=== PATIENT | female | born 1980 | race African-American/Black ===

== ENCOUNTER 2016-11-18 17:26 | Observation (INO) | payer MEDICAID ==
[~2016-11-18] VITALS: Ht 154.9 cm; Wt 66.2 kg
[2016-11-18] MEDS ORDERED: ESOM20CA PO (17:42)
[2016-11-18] MEDS ORDERED: PREN-88 PO (17:43)
[2016-11-18] MEDS ORDERED: FERR-63 PO (17:43)
[2016-11-18] MEDS ORDERED: LABE100T PO (17:43)
[2016-11-18] MEDS ORDERED: LACTATED RINGERS 1,000 ML IV SCH (17:45)
[2016-11-18 18:09] LABS: CLARITY URINE CLOUDY (CLEAR); COLOR URINE YELLOW (YELLOW); GLUCOSE URINE NEGATIVE (NEGATIVE); KETONES URINE NEGATIVE (NEGATIVE); LEUKOCYTE ESTERASE URINE TRACE (NEGATIVE); NITRITE URINE NEGATIVE (NEGATIVE); OCCULT BLOOD URINE TRACE (NEGATIVE); PROTEIN URINE NEGATIVE (NEGATIVE); SPECIFIC GRAVITY URINE 1.019 (1.005-1.030)
[2016-11-18] MEDS ORDERED: MAGNESIUM 20 G PREMIX (L & D) 500 ML IV SCH (18:15)
[2016-11-18] MEDS ORDERED: BETAMETHASONE ACET/BETAMET 30 MG/5 ML VIAL IM NR (18:15)
[2016-11-18 18:25] LABS: BACTERIA URINE TRACE; SQUAMOUS EPITHELIAL CELL URINE 1+ /lpf (RARE/1+); WBC URINE 0-2 /hpf (0-2)
[2016-11-18 18:27] VITALS: BP 169/78
[2016-11-18 18:35] LABS: BASOPHILS % 0.2 % (0.0-2.0); EOSINOPHILS % 1.4 % (0.0-5.0); HEMATOCRIT. 30.8 % (36.0-48.0); HEMOGLOBIN. 10.1 g/dL (12.0-16.0); LYMPHOCYTES % 22.6 % (20.0-50.0); MEAN CORPUSCULAR HEMOGLOBIN 31.4 pg (28.0-32.0); MEAN CORPUSCULAR HGB CONC 32.7 g/dL (31.0-37.0); MEAN CORPUSCULAR VOLUME 95.8 fL (81.0-99.0); MEAN PLATELET VOLUME 8.8 fl (7.4-10.4); MONOCYTES % 6.3 % (2.0-8.0); NEUTROPHILS % 69.5 % (40.0-76.0); PLATELET 236 x1000/uL (130-400); RED BLOOD CELL COUNT 3.21 mill/uL (4.2-5.4); RED CELL DISTRIBUTION WIDTH 14.1 % (11.6-14.6); WHITE BLOOD COUNT 11.1 x1000/uL (4.5-11.0)
[2016-11-18 18:43] LABS: CHLORIDE 104 mEq/L (98-107); INDEX HEMOLYSI 1 (1-3); INDEX ICTERIC 1 (1-4); INDEX LIPEMIC 1 (1-3)
[2016-11-18 18:52] LABS: ALANINE AMINOTRANSFERASE 16 IU/L (13-61); ALBUMIN 2.7 g/dL (3.4-5.0); ANION GAP 13; CALCIUM 8.9 mg/dL (8.5-10.1); CARBON DIOXIDE 25 mEq/L (21-32); UREA NITROGEN BLOOD 6 mg/dL (7-21); eGFR > 60 mL/min (>60)
== END 2016-11-18 21:30 | disposition home or self-care (01) ==
LOC: L&D 17:26
PROVIDERS: ADMIT Obstetrics & Gynecology; ATTEND Obstetrics & Gynecology
DX: O26.893 Other specified pregnancy related conditions, third trimester (principal); O09.523 Supervision of elderly multigravida, third trimester; R10.31 Right lower quadrant pain; Z3A.33 33 weeks gestation of pregnancy
CPT/HCPCS: 36415; 76805; 76818; 76857; 80053; 81001; 85025; 96365; 96366; 96372; G0378; J0702; J3475; J7120; A4315

== ENCOUNTER 2016-11-19 17:50 | Observation (INO) | payer MEDICAID ==
[~2016-11-19] VITALS: Ht 154.9 cm; Wt 66.2 kg
[~2016-11-19 17:50] MED LIST: ESOM20CA PO; FERR-63 PO; LABE100T PO; PREN-88 PO
[2016-11-19] MEDS ORDERED: BETAMETHASONE ACET/BETAMET 30 MG/5 ML VIAL IM NR (18:00)
== END 2016-11-19 18:20 | disposition home or self-care (01) ==
LOC: L&D 17:50
PROVIDERS: ADMIT Obstetrics & Gynecology; ATTEND Obstetrics & Gynecology
DX: Z34.93 Encounter for supervision of normal pregnancy, unspecified, third trimester (principal); Z3A.33 33 weeks gestation of pregnancy
CPT/HCPCS: 96372; G0378; J0702; 96360; 96361; 96365